=== PATIENT | female | born 2000 | race Caucasian/White ===

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

== ENCOUNTER 2024-01-20 07:30 | Inpatient (IN) ==
[2024-01-20] MEDS ORDERED: CALCIUM CARBONATE 500 MG CHEWABLE TAB PO PRN (08:34)
[2024-01-20] MEDS ORDERED: LIDOCAINE 1% LOCAL 20 ML VIAL INFIL PRN (08:34)
[2024-01-20] MEDS ORDERED: OXYTOCIN 30 UNITS/NSS 30 UNITS/500 ML BAG IV PRN ×2 (08:39→22:11)
[2024-01-20 09:08] LABS: Hematocrit (blood only) 36.2 % (37.0-47.0); Hemoglobin 12.8 g/dl (12.0-16.0); Mean Corpuscular Hemoglobin 29.6 pg (25.0-34.0); Mean Corpuscular Hgb Conc 35.4 g/dL (32.0-36.0); Mean Corpuscular Volume 83.8 fL (80.0-100.0); Mean Platelet Volume 9.7 fL (9.4-12.4); Platelet Count 263 K/uL (130-400); RDW Coefficient of Variation 12.3 % (11.5-14.5); RDW Standard Deviation 37.6 fL (36.4-46.3); Red Blood Count 4.32 M/uL (4.20-5.40); White Blood Count 9.95 K/ul (4.8-10.8)
[2024-01-20] MEDS: OXYTOCIN 30 UNITS/NSS 30 UNITS/500 ML BAG IV PRN (09:35)
[2024-01-20] MEDS: PENICILLIN GK 6 MU in DEXTROSE 5% 250 ML IV STA (09:38)
[2024-01-20] MEDS: LACTATED RINGER'S 1,000 ML IV SCH (09:38)
[2024-01-20 10:01] LABS: Amphetamines+Metham, Urine Neg (Neg); Barbiturates, Urine Neg (Neg); Benzodiazepine, Urine Neg (Neg); Cocaine, Urine Neg (Neg); Fentanyl, Urine Neg (Neg); MDMA (Ecstacy), Urine Neg (Neg); Marijuana, Urine Pos (Neg); Methadone, Urine Neg (Neg); Opiate, Urine Neg (Neg); Phencyclidine, Urine Neg (Neg)
[2024-01-20] MEDS: ONDANSETRON INJ 2 MG/ML 2 ML VIAL IV PRN (11:44)
[2024-01-20] MEDS: PENICILLIN GK 3 MU in DEXTROSE 5% 100 ML IV PRN (13:29)
[2024-01-20] MEDS ORDERED: NALOXONE HCL 1 MG in SODIUM CHLORIDE 0.9% 1,000 ML IV PRN (16:27)
[2024-01-20] MEDS ORDERED: NALBUPHINE HCL INJ 10 MG/ML AMP IV PRN (16:27)
[2024-01-20] MEDS ORDERED: ONDANSETRON INJ 2 MG/ML 2 ML VIAL IV PRN (16:27)
[2024-01-20] MEDS ORDERED: diphenhydrAMINE 50 MG/ML VIAL IV PRN (16:27)
[2024-01-20] MEDS ORDERED: NALOXONE HCL 0.4 MG/1 ML VIAL/CARP IV PRN (16:27)
[2024-01-20] MEDS ORDERED: SODIUM CHLORIDE 0.9% PF INJ 10 ML VIAL EPI PRN (16:27)
[2024-01-20] MEDS ORDERED: fentaNYL citrate PF 100 MCG/2 ML VIAL EPI PRN (16:27)
[2024-01-20] MEDS ORDERED: LIDOCAINE 2% MPF LOCAL 5 ML VIAL EPI PRN (16:27)
[2024-01-20] MEDS ORDERED: ROPIVACAINE 0.5% PF 5 MG/ML 20 ML VIAL EPI PRN (16:27)
[2024-01-20] MEDS ORDERED: ePHEDrine sulfate 50 MG/ML AMP IV PRN (16:27)
--- NOTE | 2024-01-20 16:27 | Anesthesiology Consultation ---
Date of Service January 20, 2024 Assessment & Plan ASA ASA2 Proposed Anesthesia Anesthesia Type: Labor Epidural History Height/Weight Height: 5 ft 3 in Weight: 124.33 kg Allergies Allergy/AdvReac Type Severity Reaction Status Date / Time No Known Drug Allergies Allergy Verified 01/18/24 10:39 Medications Home Medications Medication Instructions Recorded Confirmed Last Taken Medical Marijuana 1 puff inhalation TID PRN 02/27/23 01/20/24 01/17/24 PAIN/ANXIETY prenat.vits,davon,[id number]-afgan tab PO 06/17/23 01/18/24 01/19/24 ondansetron HCl 4 mg tablet 4 mg PO Q8H PRN nausea and 08/26/23 01/20/24 Unknown vomiting #20 tabs Active Medications Generic Name Dose Route Start Last Admin Trade Name Freq PRN Reason Stop Dose Admin Oxytocin 30 units in 500 mls @ 12 mls/hr 01/20/24 08:34 01/20/24 15:30 Pitocin 30 Units/Nss IV 01/22/24 08:33 0.72 units/hr .Q24H PRN 12 mls/hr Labor Induction/Augmentation Titration Protocol 0.72 UNITS/HR Lactated Ringer's 1,000 mls @ 125 mls/hr 01/20/24 08:45 01/20/24 16:10 Lr IV 01/21/24 08:44 999 mls/hr .Q8H [id number] Infusion Ondansetron HCl 4 mg 01/20/24 11:31 01/20/24 11:44 Ondansetron Inj 2 Mg/Ml 2 Ml Vial IV 02/19/24 11:30 4 mg Q4H PRN Administration Nausea Past Family History Family History Father Hypertension Denies family history of Ovarian cancer Prostate cancer Breast cancer Colorectal cancer Past Surgical History Surgical History History of wisdom tooth extraction Social History Smoking Status: Never smoker Do You Dip or Chew Tobacco: No Hx Alcohol Use: No Hx Substance Use: Yes substance use type: does not use Substance Use Type Other:: medical marijuana Last Used Substance: Days (ago) Last Used Substance Other:: few days ago Physical Exam Vital Signs Last Vital Signs Temp 36.9 C 01/20/24 15:00 Pulse 109 H 01/20/24 14:42 Resp 18 01/20/24 15:00 BP 127/67 01/20/24 14:42 Testing Laboratory Results 01/20/24 08:43 Blood Type O Positive 01/20/24 08:43 Antibody Screen NEGATIVE 01/20/24 08:43
[2024-01-20] MEDS: LIDOCAINE 2%/EPINEPHRINE 1:200,000 20 ML PF EPI STA (17:11)
[2024-01-20] MEDS: BUPIVACAINE 0.25% PF 30 ML VIAL EPI PRN (17:11)
[2024-01-20] MEDS: fentaNYL citrate PF 100 MCG/2 ML VIAL EPI STA (17:12)
[2024-01-20] MEDS: fentANYL 2 MCG/ML BUPIVacaine 0.125%-NSS 100ML BAG EPI PRN (17:13)
[2024-01-20] MEDS: fentaNYL citrate PF 100 MCG/2 ML VIAL ONE (17:13)
[2024-01-20] MEDS: fentANYL 2 MCG/ML BUPIVacaine 0.125%-NSS 100ML BAG ONE (17:13)
[2024-01-20] MEDS: SODIUM CHLORIDE 0.9% PF INJ 10 ML VIAL ONE (17:13)
[2024-01-20] MEDS: BUPIVACAINE 0.25% PF 30 ML VIAL ONE (17:13)
[2024-01-20] MEDS: LIDOCAINE 2%/EPINEPHRINE 1:200,000 20 ML PF ONE (17:13)
[2024-01-20] MEDS: ePHEDrine sulfate 50 MG/ML AMP ONE (17:13)
[2024-01-20] MEDS: BUPIVACAINE 0.25% PF 30 ML VIAL EPI STA (17:14)
[2024-01-20] MEDS: SODIUM CHLORIDE 0.9% PF INJ 10 ML VIAL EPI STA (17:15)
--- NOTE | 2024-01-20 20:29 | History & Physical Report ---
Date of Service January 20, 2024 Assessment & Plan (1) IUGR (intrauterine growth restriction) affecting care of mother: Plan: Ludmila is a 23-year-old G1, P0 currently 37 weeks 0 days gestational age presents for induction of labor secondary to severe IUGR with estimated weight less than the 3rd percentile. 1. Fetus: Category 1 tracing 2. Labor: Cervical ripening Cheung placed. Will start oxytocin per regular protocol and plan for rupture of membranes after Cheung is complete 3. Vitals within normal limits 4. GBS unknown will plan for penicillin for now. Will discontinue if GBS result returns and is negative (2) Supervision of normal intrauterine in primigravida: (3) Encounter for induction of labor: Admission and Anticipated Discharge Date Admission Date: January 20, 2024 History of Present Illness Primary Care Provider: NO PCP Ludmila is a 23-year-old currently at 37 weeks 0 days gestational age presents for induction of labor for severe IUGR. complicated by: Obesity (BMI 40 and higher @ beginning of )--40.8 *Growth US @ 32wks *Weekly NSTs @ 34wks *BMI 40 or greater offer detailed/level II anatomy at [facility]-->offered to pt, she will let us know by 16wks. *BMI 40 or above offer delivery by [facility]. *BMI 50 or greater scheduled detailed/level II anatomy at [facility] IUGR *Twice weekly NST/DVP@Dx *Weeklyl doppler@Dx *Growth US Q4wk @Dx *Deliver [id number] (unless abnml flow) *Deliver 37wks (less than 3rd%) OB Labs: Blood Type O Positive 06/24/23 Antibody Screen NEGATIVE 06/24/23 Hgb 12.4 g/dl (12.0-16.0) 11/18/23 Hct 36.7 % (37.0-47.0) L 11/18/23 MCV 87.7 fL (80.0-100.0) 06/24/23 Plt Count 250 K/uL (130-400) 06/24/23 Rubella IgG Antibody Equivocal (Immune) L 06/24/23 RPR Nonreactive (Nonreactive) 06/24/23 Treponema pallidum Ab Negative (Negative) 11/18/23 Hep Bs Antigen NON-REACTIVE (NON-REACTIVE) 06/24/23 Hepatitis C Ab (EIA) NON-REACTIVE (NON-REACTIVE) 06/24/23 HIV (1&2) Ag & Ab Conf NON-REACTIVE (NON-REACTIVE) 06/24/23 Glucose 1 Hr 50 gm 105 mg/dl (70-130) 11/18/23 Maternal Serum AFP 43.3 ng/mL 08/26/23 OB Optional Labs: Chlamydia trachomatis RNA Not Detected (NotDetected) 06/24/23 Neisseria gonorrhoeae RNA Not Detected (NotDetected) 06/24/23 Thyroid Stimulating Hormone (TSH) 2.150 uIu/ml (0.510-4.910) 12/10/16 Alpha Fetoprotein Triple Screen SEE NOTE 08/26/23 Allergies Allergy/AdvReac Type Severity Reaction Status Date / Time No Known Drug Allergies Allergy Verified 01/18/24 10:39 Home Medications Medication Instructions Recorded Confirmed Type Medical Marijuana 1 puff inhalation TID PRN 02/27/23 01/20/24 History PAIN/ANXIETY prenat.vits,davon,jcp-yljm-lhytt tab PO 06/17/23 01/18/24 History ondansetron HCl 4 mg tablet 4 mg PO Q8H PRN nausea and 08/26/23 01/20/24 Rx vomiting #20 tabs Patient History Surgical History History of wisdom tooth extraction Family History Father Hypertension Denies family history of Ovarian cancer Prostate cancer Breast cancer Colorectal cancer Social History (Updated 01/20/24 @ 07:55 by Luba Uribe RN) Smoking Status: Never smoker Do You Dip or Chew Tobacco: No; Hx Alcohol Use: No Hx Substance Use: Yes Prescribed Medications: Marijuana Prescribed Medications Comment: medical marijuana Last Used Substance: Days (ago) Last Used Substance Other:: few days ago Substance Use Type Other:: medical marijuana Preferred Language: Danish Communication Ability: Effective Visual Impairment: No Limitations Pc Maintenance Technician Required: No Beliefs That Will Affect Care: None marital status: Single marital status details: Nico (22) [phone] Current Living Situation: Significant Other Current Living Situation Comment: lives with boyfriend, 2 dogs, 1 cat. boyfriend changing litter box. current occupational status: employed current occupation: access database developer at [employer] Other Information That Helps Us Care for You: No Feels Safe at Home: Yes Safety Concerns: Feels Safe At This Time Assistive Devices: Glasses Physical Exam Genitourinary: Manual OB Exam: + cervical dilation fingertip, + cervical effacement 50% and + station high OB Exam Monitor Tracing: + external FHT monitor used, + external uterine monitor used, + category I and + normal FHT variability; no early decelerations present, no late decelerations present and no variable decelerations Results & Data Vital Signs (Past 12 Hours) Vital Signs Temp Pulse Resp BP 01/20/24 07:55 36.6 C 125 H 18 123/81 01/20/24 07:37 125 H 123/81 01/20/24 07:35 18 01/20/24 07:35 36.6 C 18 Coding Level of Care Code None Diagnoses Poor growth affecting management of mother in third trimester, single or unspecified fetus O36.5930 Fetus number: single or unspecified fetus Trimester: third trimester Encounter for supervision of normal first in third trimester Z34.03 Trimester: third trimester Encounter for induction of labor Z34.90 (1) IUGR (intrauterine growth restriction) affecting care of mother Fetus number: single or unspecified fetus Trimester: third trimester Qualified Code(s): O36.5930 - Maternal care for other known or suspected poor growth, third trimester, not applicable or unspecified (2) Supervision of normal intrauterine in primigravida Trimester: third trimester Qualified Code(s): Z34.03 - Encounter for supervision of normal first , third trimester
--- NOTE | 2024-01-20 20:32 | Labor Progress Brief Note ---
Date of Service January 20, 2024 Subjective Reason For Note: Routine Evaluation Assessment & Plan (1) IUGR (intrauterine growth restriction) affecting care of mother: Plan: Ludmila is a 23-year-old G1, P0 currently 37 weeks 0 days gestational age presents for induction of labor secondary to severe IUGR with estimated weight less than the 3rd percentile. 1. Fetus: Category 1 tracing 2. Labor: S/P Cervical ripening Cheung placed. Continue oxytocin per regular protocol. Post AROM earlier this afternoon. 3. Vitals within normal limits 4. GBS unknown will plan for penicillin for now. Will discontinue if GBS result returns and is negative Fetus number: single or unspecified fetus Trimester: third trimester Qualified Code(s): O36.5930 - Maternal care for other known or suspected poor growth, third trimester, not applicable or unspecified (2) Supervision of normal intrauterine in primigravida: Trimester: third trimester Qualified Code(s): Z34.03 - Encounter for supervision of normal first , third trimester (3) Encounter for induction of labor: Admission and Anticipated Discharge Date Admission Date: January 20, 2024 Physical Exam Genitourinary: Manual OB Exam: + cervical dilation 5 cm, + cervical effacement 80% and + station high and -1 OB Exam Monitor Tracing: + scalp electrode used, + intra-uterine pressure catheter used, + category I and + normal FHT variability; no early decelerations present, no late decelerations present and no variable decelerations FSE and IUPC placed due to difficulty monitoring contractions and heart rate. Results & Data Vital Signs (Past 12 Hours) Vital Signs Temp Pulse Resp BP Pulse Ox O2 Del Method 01/20/24 20:28 100 01/20/24 20:28 77 01/20/24 20:23 100 01/20/24 20:23 79 01/20/24 20:20 82 01/20/24 20:20 115/56 L 01/20/24 20:18 100 01/20/24 20:18 83 01/20/24 20:13 98 01/20/24 20:13 102 H 01/20/24 20:08 100 01/20/24 20:08 113 H 01/20/24 20:07 94 01/20/24 20:07 95 H 01/20/24 20:05 85 01/20/24 20:05 108/59 L 01/20/24 20:03 100 01/20/24 20:03 72 01/20/24 20:00 18 01/20/24 20:00 18 01/20/24 19:58 100 01/20/24 19:58 89 01/20/24 19:53 99 01/20/24 19:53 97 H 01/20/24 19:48 98 01/20/24 19:48 94 H 01/20/24 19:43 100 01/20/24 19:43 122 H 01/20/24 19:38 99 01/20/24 19:38 116 H 01/20/24 19:33 96 01/20/24 19:33 106 H 01/20/24 19:30 92 01/20/24 19:30 125 H 01/20/24 19:28 100 01/20/24 19:28 101 H 01/20/24 19:23 100 01/20/24 19:23 81 01/20/24 19:18 100 01/20/24 19:18 95 H 01/20/24 19:13 36.8 C 18 01/20/24 19:13 Room Air 01/20/24 19:13 100 01/20/24 19:13 85 01/20/24 19:10 18 01/20/24 19:10 36.8 C 18 01/20/24 19:08 100 01/20/24 19:08 94 H 01/20/24 19:05 88 01/20/24 19:05 116/77 01/20/24 19:03 100 01/20/24 19:03 140 H 01/20/24 19:02 94 01/20/24 19:02 126 H 01/20/24 18:58 99 01/20/24 18:58 96 H 01/20/24 18:53 100 01/20/24 18:53 78 01/20/24 18:50 99 H 01/20/24 18:50 120/69 01/20/24 18:48 99 01/20/24 18:48 81 01/20/24 18:43 99 01/20/24 18:43 103 H 01/20/24 18:38 100 01/20/24 18:38 84 01/20/24 18:34 116 H 01/20/24 18:34 119/65 01/20/24 18:33 99 01/20/24 18:33 98 H 01/20/24 18:32 92 01/20/24 18:32 87 01/20/24 18:30 18 01/20/24 18:30 18 01/20/24 18:28 100 01/20/24 18:28 125 H 01/20/24 18:23 99 01/20/24 18:23 98 H 01/20/24 18:22 91 01/20/24 18:22 105 H 01/20/24 18:21 106 H 01/20/24 18:21 125/60 01/20/24 18:18 100 01/20/24 18:18 102 H 01/20/24 18:17 91 01/20/24 18:17 119 H 01/20/24 18:13 99 01/20/24 18:13 86 01/20/24 18:08 99 01/20/24 18:08 99 H 01/20/24 18:06 117 H 01/20/24 18:06 122/67 01/20/24 18:03 98 01/20/24 18:03 112 H 01/20/24 18:02 93 01/20/24 18:02 111 H 01/20/24 18:00 18 01/20/24 18:00 18 01/20/24 17:58 100 01/20/24 17:58 91 H 01/20/24 17:53 100 01/20/24 17:53 92 H 01/20/24 17:51 96 H 01/20/24 17:51 130/70 01/20/24 17:48 98 01/20/24 17:48 118 H 01/20/24 17:43 100 01/20/24 17:43 127 H 01/20/24 17:38 100 01/20/24 17:38 119 H 01/20/24 17:35 92 01/20/24 17:35 119 H 01/20/24 17:35 112 H 01/20/24 17:35 137/81 01/20/24 17:33 94 01/20/24 17:33 125 H 01/20/24 17:29 94 01/20/24 17:29 112 H 01/20/24 17:28 99 01/20/24 17:28 101 H 01/20/24 17:23 100 01/20/24 17:23 122 H 01/20/24 17:18 100 01/20/24 17:18 140 H 01/20/24 17:17 134 H 01/20/24 17:17 111/57 L 01/20/24 17:15 130 H 01/20/24 17:15 111/55 L 01/20/24 17:13 100 01/20/24 17:13 133 H 01/20/24 17:13 124/57 L 01/20/24 17:11 137 H 01/20/24 17:11 147/84 H 01/20/24 17:10 127 H 01/20/24 17:10 138/65 01/20/24 17:08 100 01/20/24 17:08 143 H 01/20/24 17:07 134 H 01/20/24 17:07 147/67 H 01/20/24 17:06 114 H 01/20/24 17:06 146/69 H 01/20/24 17:03 99 01/20/24 17:03 105 H 01/20/24 17:03 122/84 01/20/24 17:03 91 01/20/24 17:03 100 H 01/20/24 17:01 117 H 01/20/24 17:01 136/86 01/20/24 17:00 18 01/20/24 17:00 36.9 C 18 01/20/24 16:58 99 01/20/24 16:58 129 H 01/20/24 16:53 126 H 01/20/24 16:53 135/84 01/20/24 16:51 99 01/20/24 16:51 101 H 01/20/24 16:49 93 01/20/24 16:49 95 H 01/20/24 16:46 100 01/20/24 16:46 120 H 01/20/24 16:41 100 01/20/24 16:41 108 H 01/20/24 16:38 103 H 01/20/24 16:38 133/79 01/20/24 16:36 100 01/20/24 16:36 86 01/20/24 16:31 100 01/20/24 16:31 107 H 01/20/24 16:26 100 11/07/24 16:26 215 H 01/20/24 15:00 36.9 C 01/20/24 15:00 18 01/20/24 15:00 18 01/20/24 14:42 109 H 01/20/24 14:42 127/67 01/20/24 14:00 18 01/20/24 14:00 18 01/20/24 13:30 18 01/20/24 13:30 36.9 C 18 01/20/24 13:29 93 H 01/20/24 13:29 127/82 01/20/24 13:00 18 01/20/24 13:00 18 01/20/24 11:20 78 01/20/24 11:20 109/66 01/20/24 10:08 90 01/20/24 10:08 119/81 01/20/24 10:00 18 01/20/24 10:00 36.8 C 18 Coding Level of Care Code None Diagnoses Poor growth affecting management of mother in third trimester, single or unspecified fetus O36.5930 Fetus number: single or unspecified fetus Trimester: third trimester Encounter for supervision of normal first in third trimester Z34.03 Trimester: third trimester Encounter for induction of labor Z34.90
[2024-01-20] MEDS ORDERED: BENZOCAINE 20% SPRY 85 APPLN/85 GM CAN EXT PRN (22:11)
[2024-01-20] MEDS ORDERED: HYDROCORTISONE ACETATE 25 MG SUPP PR PRN (22:11)
[2024-01-20] MEDS ORDERED: ACETAMINOPHEN 325 MG TAB PO PRN (22:11)
--- NOTE | 2024-01-20 22:11 | Delivery Summary ---
Vaginal Delivery Summary Date of Service January 20, 2024 Vaginal Delivery Summary Patient progressed to 10 cm dilated, 100% effaced, +2 station pushed intact perineum with epidural anesthesia and delivered a viable with weight and Apgars pending. The head of the delivered without difficulty quickly followed by shoulders and body. was noted be vigorous soon after delivery and a 1 minute delayed cord clamping was initiated. Cord was then double clamped and cut. Attention was turned deliver the placenta was delivered intact three-vessel cord gentle cord traction. Inspection of perineum vagina cervix there is noted to be no lacerations. Sponge and instrument counts correct at the completion of the case. Both mother and stable in the immediate post delivery timeframe. No complications noted and blood loss per QBL [facility] Vaginal Delivery Charge Delivery Type Details: [facility]
[2024-01-20] MEDS: DIPHTHER/TETAN/PERTUS Vaccine (Tdap, Adol/Adult) 0.5mL IM ONE (22:39)
--- NOTE | 2024-01-20 23:19 | Anesthesia Procedure Note ---
Date of Service January 20, 2024 Anesthesia Post Epidural Note Vital Signs Vital Signs: Temp Pulse Resp BP Pulse Ox O2 Del Method 36.5 C 137 H 18 104/56 L 100 Room Air 01/20/24 21:00 01/20/24 23:04 01/20/24 23:10 01/20/24 23:04 01/20/24 22:14 01/20/24 19:13 Pain Intensity Bilateral Lower Abdomen: Pain Intensity: 0 Notes Mental Status: alert / awake / arousable and participated in evaluation Nausea / Vomiting: adequately controlled Pain: adequately controlled Airway Patency, RR, SpO2: stable & adequate BP & HR: stable & adequate Hydration State: stable & adequate Neuraxial Anesthesia: was administered and sensory block resolved Anesthetic Complications: no major complications apparent and Pt Satisfied with anesthetic care Epidural: Removed without complications and With tip intact
[2024-01-21] MEDS: PRENATAL VITAMIN 1 TAB PO SCH (07:26)
[2024-01-21] MEDS: FERROUS SULFATE 325 MG TAB PO SCH (07:26)
[2024-01-21] MEDS: IBUPROFEN 600 MG TAB PO PRN (07:26)
[2024-01-21] MEDS: DOCUSATE SODIUM 100 MG CAP PO SCH (07:26)
--- NOTE | 2024-01-21 08:23 | Obstetrical Progress Note ---
Date of Service January 21, 2024 Assessment & Plan (1) Encounter for care and examination after delivery: Day 1 status post vaginal delivery. Patient doing well. Routine care Subjective Ambulation: ambulating normally Voiding: no voiding problems Passing Gas:: Yes Diet Tolerance:: regular diet Lochia:: Moderate Feeding Type:: breast feeding Physical Exam Constitutional WD/WN, vitals as above Respiratory normal respiratory effort; no respiratory distress and no labored breathing Cardiovascular Extremities: no calf tenderness Gastrointestinal (Abdomen) Inspection/Auscultation: abdomen normal to inspection; abdomen not distended Percussion/Palpation: abdomen soft; abdomen nontender, no guarding and abdomen not rigid Genitourinary OB Exam Abdomen: + fundal height Fundus: + firm and + relation to umbilicus (Below); not tender or not boggy Results & Data Vital Signs (Past 12 Hours) Vital Signs Temp Pulse Pulse Resp BP BP Pulse Ox 01/21/24 07:43 36.6 C 95 H 18 97 01/21/24 07:35 36.6 C 94 H 16 122/76 98 01/21/24 03:15 36.6 C 82 18 116/78 97 01/21/24 00:39 36.5 C 83 18 132/79 97 01/21/24 00:16 97 H 110/60 01/21/24 00:10 18 01/21/24 00:05 100 H 124/61 01/20/24 23:49 153 H 01/20/24 23:49 123/59 L 01/20/24 23:40 18 01/20/24 23:34 120 H 01/20/24 23:34 122/54 L 01/20/24 23:19 104 H 01/20/24 23:19 111/57 L 01/20/24 23:10 18 01/20/24 23:04 137 H 01/20/24 23:04 104/56 L 01/20/24 22:55 18 01/20/24 22:49 134 H 01/20/24 22:49 116/61 01/20/24 22:40 18 01/20/24 22:34 118 H 01/20/24 22:34 119/54 L 01/20/24 22:25 18 01/20/24 22:20 134 H 01/20/24 22:20 123/58 L 01/20/24 22:14 100 01/20/24 22:14 144 H 01/20/24 22:10 18 01/20/24 22:09 99 01/20/24 22:09 165 H 01/20/24 22:05 134 H 01/20/24 22:05 132/85 01/20/24 22:04 99 01/20/24 22:04 146 H 01/20/24 21:59 98 01/20/24 21:59 171 H 01/20/24 21:54 70 L 01/20/24 21:54 162 H 01/20/24 21:54 85 L 01/20/24 21:54 163 H 01/20/24 21:49 90 01/20/24 21:49 182 H 01/20/24 21:48 96 01/20/24 21:48 177 H 01/20/24 21:45 18 01/20/24 21:45 18 01/20/24 21:43 100 01/20/24 21:43 186 H 01/20/24 21:38 100 01/20/24 21:38 121 H 01/20/24 21:35 133 H 01/20/24 21:35 149/82 H 01/20/24 21:33 100 01/20/24 21:33 116 H 01/20/24 21:30 18 01/20/24 21:30 18 01/20/24 21:28 100 01/20/24 21:28 141 H 01/20/24 21:23 97 01/20/24 21:23 107 H 01/20/24 21:20 96 H 01/20/24 21:20 114/65 01/20/24 21:18 100 01/20/24 21:18 86 01/20/24 21:13 100 01/20/24 21:13 90 01/20/24 21:08 100 01/20/24 21:08 95 H 01/20/24 21:05 97 H 01/20/24 21:05 118/56 L 01/20/24 21:03 100 01/20/24 21:03 89 01/20/24 21:00 18 01/20/24 21:00 36.5 C 18 01/20/24 20:58 100 01/20/24 20:58 119 H 01/20/24 20:53 100 01/20/24 20:53 84 01/20/24 20:51 77 01/20/24 20:51 106/54 L 01/20/24 20:48 99 01/20/24 20:48 77 01/20/24 20:43 99 01/20/24 20:43 88 01/20/24 20:38 100 01/20/24 20:38 83 01/20/24 20:36 77 01/20/24 20:36 114/59 L 01/20/24 20:33 100 01/20/24 20:33 85 01/20/24 20:28 100 01/20/24 20:28 77 01/20/24 20:23 100 01/20/24 20:23 79 O2 Del Method 01/21/24 07:43 Room Air 01/21/24 07:35 Room Air 01/21/24 03:15 Room Air 01/21/24 00:39 Room Air 01/21/24 00:16 01/21/24 00:10 01/21/24 00:05 01/20/24 23:49 01/20/24 23:49 01/20/24 23:40 01/20/24 23:34 01/20/24 23:34 01/20/24 23:19 01/20/24 23:19 01/20/24 23:10 01/20/24 23:04 01/20/24 23:04 01/20/24 22:55 01/20/24 22:49 01/20/24 22:49 01/20/24 22:40 01/20/24 22:34 01/20/24 22:34 01/20/24 22:25 01/20/24 22:20 01/20/24 22:20 01/20/24 22:14 01/20/24 22:14 01/20/24 22:10 01/20/24 22:09 01/20/24 22:09 01/20/24 22:05 01/20/24 22:05 01/20/24 22:04 01/20/24 22:04 01/20/24 21:59 01/20/24 21:59 01/20/24 21:54 01/20/24 21:54 01/20/24 21:54 01/20/24 21:54 01/20/24 21:49 01/20/24 21:49 01/20/24 21:48 01/20/24 21:48 01/20/24 21:45 01/20/24 21:45 01/20/24 21:43 01/20/24 21:43 01/20/24 21:38 01/20/24 21:38 01/20/24 21:35 01/20/24 21:35 01/20/24 21:33 01/20/24 21:33 01/20/24 21:30 01/20/24 21:30 01/20/24 21:28 01/20/24 21:28 01/20/24 21:23 01/20/24 21:23 01/20/24 21:20 01/20/24 21:20 01/20/24 21:18 01/20/24 21:18 01/20/24 21:13 01/20/24 21:13 01/20/24 21:08 01/20/24 21:08 01/20/24 21:05 01/20/24 21:05 01/20/24 21:03 01/20/24 21:03 01/20/24 21:00 01/20/24 21:00 01/20/24 20:58 01/20/24 20:58 01/20/24 20:53 01/20/24 20:53 01/20/24 20:51 01/20/24 20:51 01/20/24 20:48 01/20/24 20:48 01/20/24 20:43 01/20/24 20:43 01/20/24 20:38 01/20/24 20:38 01/20/24 20:36 01/20/24 20:36 01/20/24 20:33 01/20/24 20:33 01/20/24 20:28 01/20/24 20:28 01/20/24 20:23 01/20/24 20:23
[2024-01-21] MEDS: ACETAMINOPHEN 500 MG TAB PO PRN (14:44)
[2024-01-21] MEDS: bisacodyL 5 MG TABEC PO SCH (20:23)
--- NOTE | 2024-01-22 08:33 | Obstetrical Progress Note ---
Date of Service January 22, 2024 Assessment & Plan (1) Encounter for care and examination after delivery: 23 yo PP2 from , doing well -Meeting all pp milestones -O+/rubella equiv, mmr ordered/ -f/u 6 weeks for apptamanda today Subjective Ambulation: ambulating normally Voiding: no voiding problems Passing Gas:: Yes Diet Tolerance:: regular diet Lochia:: Small Pain well managed with medication Review of Systems Denies fevers, chills, n/v, NUNEZ, CP, SOB Physical Exam Constitutional WD/WN, vitals as above no acute distress Respiratory normal respiratory effort, lungs clear to auscultation Gastrointestinal (Abdomen) Percussion/Palpation: abdomen soft; abdomen nontender fundus firm at umbilicus and NT Musculoskeletal BLE symmetric, nonerythematous, nontender Results & Data Vital Signs (Past 12 Hours) Vital Signs Temp Pulse Resp BP Pulse Ox O2 Del Method 01/22/24 00:10 97.7 F 78 18 123/78 99 Room Air
[2024-01-22 09:12] VITALS: BP 134/81; RESP 20; TEMP 97.9; O2SAT 98
[2024-01-22] MEDS: MEASLES, MUMPS & RUBELLA VIRUS VACCINE (MMR) 0.5ML VIAL SQ ONE (10:32)
[2024-01-22 11:53] VITALS: PULSE 93
[2024-01-22 12:42] LABS: Marijuana Quant, GCMS Urine 19 ng/mL (<5)
[2024-01-22] MEDS ORDERED: bisacodyL 10 MG SUPP PR PRN (22:11)
== END 2024-01-22 13:40 | disposition home or self-care (01) | DRG 807 ==
LOC: 4S1 07:30 → 4E2 01-21 00:30
DX: O36.5930 Maternal care for other known or suspected poor fetal growth, third trimester, not applicable or unspecified; Z3A.37 37 weeks gestation of pregnancy; O99.214 Obesity complicating childbirth; Z37.0 Single live birth